=== PATIENT | female | born 1980 | race Caucasian/White ===

== ENCOUNTER 2016-03-14 23:56 | Emergency (ER) | payer MEDICAID | END 2016-03-15 00:30 | disposition home or self-care (01) | LOC: D.ER 23:56 | DX: T78.40XA Allergy, unspecified, initial encounter (principal); X58.XXXA Exposure to other specified factors, initial encounter ==

== ENCOUNTER 2016-05-12 12:39 | Emergency (ER) | payer SELFPAY ==
[2016-05-12 13:39] LABS: BASOPHILS 0.2 % (0.0-2.0); EOSINOPHILS 0.7 % (0-7); HEMATOCRIT 40.6 % (36.0-48.0); LYMPHOCYTES 20.5 % (15-50); MCH 30.7 pg (26.0-34.0); MCV 95.8 fL (80.0-100.0); MEAN PLATELET VOLUME 11.9 fL (7.4-10.4); MONOCYTES 12.8 % (2-11); NEUTROPHILS 65.8 % (40-80); RBC 4.24 10x6/uL (4.00-5.40); RDW 13.7 % (11.5-14.5); WBC 4.5 10x3/uL (4.8-10.8)
[2016-05-12 14:03] LABS: ALBUMIN 3.9 g/dL (3.4-5.0); ALKALINE PHOSPHATASE 94 U/L (46-116); ALT (SGPT) 23 U/L (10-68); BILIRUBIN - TOTAL 0.13 mg/dL (0.2-1.3); CALC OSMOLALITY 278 mosm/kg (275-300); CALCIUM 8.8 mg/dL (8.5-10.1); CARBON DIOXIDE 25.7 mmol/L (21.0-32.0); CHLORIDE - SERUM 104 mmol/L (98-107); CREATININE - SERUM 0.7 mg/dL (0.6-1.3); GLUCOSE 81 mg/dL (74-106); POTASSIUM - SERUM 3.9 mmol/L (3.5-5.1); PROTEIN - SERUM 7.3 g/dL (6.4-8.2); SODIUM 141 mmol/L (136-145); UREA NITROGEN 10 mg/dL (7-18); eGFR NON AFRICAN AMERICAN > 90 mL/min (90-120)
[2016-05-12 14:06] LABS: PLATELET COUNT 129 10x3/uL (130-400)
== END 2016-05-12 14:34 | disposition home or self-care (01) ==
LOC: D.ER 12:39
PROVIDERS: Emergency Medicine
DX: J11.1 Influenza due to unidentified influenza virus with other respiratory manifestations (principal)

== ENCOUNTER 2016-05-20 20:08 | Emergency (ER) | payer SELFPAY | END 2016-05-21 02:05 | disposition home or self-care (01) | LOC: D.ER 20:08 | DX: T14.8 Other injury of unspecified body region (principal); W57.XXXA Bitten or stung by nonvenomous insect and other nonvenomous arthropods, initial encounter; Y93.89 Activity, other specified; Y92.89 Other specified places as the place of occurrence of the external cause; T78.49XA Other allergy, initial encounter ==